=== PATIENT | female | born 1940 | race Caucasian/White ===

== ENCOUNTER 2018-07-04 21:10 | Emergency (ER) | payer OTHER ==
[2018-07-04] MEDS ORDERED: LIDOCAINE 1% MPF 5 ML VIAL ONE (21:42)
[2018-07-04] MEDS ORDERED: LIDOCAINE 1% W/EPI 1:100,000 MDV 50 ML VIAL ONE (21:55)
--- NOTE | 2018-07-04 22:59 | ER ---
Nurse's Notes [facility] Name: Bonnie Bhatia Age: 78 yrs Sex: Female : 1940 Arrival Date: 07/04/2018 Time: 21:11 Bed 6 Private MD: Diagnosis: Laceration without foreign body of foot-Right Presentation: 07/04 21:10 Presenting complaint: Patient states: that she was moving a pot of childers and tripped fc over a metal piece, cutting top of right foot. States that it was squirting blood everywhere. Transition of care: patient was not received from another setting of care. Onset of symptoms was July 04, 2018 at 21:00. Risk Assessment: Do you want to hurt yourself or someone else? Patient reports no desire to harm self or others. Initial Sepsis Screen: Does the patient meet any 2 criteria? HR > 90 bpm. Yes Does the patient have a suspected source of infection? No. Patient's initial sepsis screen is negative. Care prior to arrival: Bleeding of injury controlled. 21:10 Method Of Arrival: Wheelchair fc 21:10 Acuity: ALESSANDRO 4 fc Historical: - Allergies: 21:28 No Known Allergies; fc - Home Meds: 21:28 Coreg 6.25 mg Oral tab 1 tab 2 times per day [Active]; gabapentin 600 mg oral tab 1 tab fc nightly [Active]; zonisamide 100 mg oral cap 1 cap once daily [Active]; primidone 50 mg Oral tab 1 tabs daily [Active]; simvastatin 20 mg Oral tab 1 tab once daily [Active]; - PMHx: 21:28 DVT; ESSENTIAL TREMORS; High Cholesterol; Hypertension; fc - PSHx: 21:28 Cholecystectomy; Hysterectomy; fc - Immunization history:: Last tetanus immunization: up to date. - Social history:: Smoking status: Patient/guardian denies using tobacco. - Ebola Screening: : Patient negative for fever greater than or equal to 101.5 degrees Fahrenheit, and additional compatible Ebola Virus Disease symptoms Patient denies exposure to infectious person Patient denies travel to an Ebola-affected area in the 21 days before illness onset. Screenin:51 Abuse screen: Denies threats or abuse. Denies injuries from another. Nutritional tl1 screening: No deficits noted. Tuberculosis screening: No symptoms or risk factors identified. Fall Risk None identified. Assessment: 22:49 General: Appears in no apparent distress. Behavior is calm, cooperative, appropriate tl1 for age. Pain: Complains of pain in dorsum of right foot. Neuro: Level of Consciousness is awake, alert, obeys commands, Oriented to person, place, time, situation. Cardiovascular: Denies chest pain. Respiratory: Airway is patent Trachea midline Respiratory effort is even, unlabored, Breath sounds are clear bilaterally. GI: Abdomen is non-distended. : No signs and/or symptoms were reported regarding the genitourinary system. EENT: No signs and/or symptoms were reported regarding the EENT system. Derm: Wound noted dorsum of right foot Wound is laceration. Injury Description: Laceration sustained to dorsum of right foot is clean, jagged, superficial, 0.5 to 2.5 cm long, was sustained 30-60 minutes ago. a small amount of bleeding noted at this time. 23:26 Reassessment: Patient and/or family updated on plan of care and expected duration. Pain tl1 level reassessed. Patient is alert, oriented x 3, equal unlabored respirations, skin warm/dry/pink. Patient denies pain at this time. Patient states feeling better. Patient states symptoms have improved. Vital Signs: 21:10 BP 119 / 79; Pulse 93; Resp 18; Temp 98.5(O); Pulse Ox 100% on R/A; Weight 78.93 kg fc (R); Height 5 ft. 8 in. (172.72 cm) (R); Pain 2/10; 22:53 BP 117 / 68; Pulse 64; Resp 17; Temp 98.6; Pulse Ox 100% ; Pain 0/10; tl1 21:10 Body Mass Index 26.46 (78.93 kg, 172.72 cm) ED Course: 21:10 Arm band placed on Patient placed in an exam room, on a stretcher. fc 21:10 Patient has correct armband on for positive identification. Bed in low position. Call tl1 light in reach. Side rails up X 1. 21:11 Patient arrived in ED. al2 21:12 Rahul Velazquez PA is PHCP. cp 21:12 Garland Santillan MD is Attending Physician. cp 21:25 Triage completed. fc 21:39 Lasagna, Abbi, RN is Primary Nurse. tl1 21:55 X-ray completed. Portable x-ray completed in exam room. Patient tolerated procedure ls3 well. 21:57 XRAY Foot RIGHT 3 View In Process Unspecified. EDMS 22:51 Assist provider with laceration repair on right foot that was 2.5 cm. or less using tl1 sutures. Set up tray. Performed by Rahul Velazquez PA Dressed with Neosporin, Patient tolerated well. Patient did not have IV access during this emergency room visit. 23:27 Dressings: 4X4s. tl1 Administered Medications: 22:30 Drug: Lidocaine-Epinephrine -1%: (1:100,000) 5 ml {Note: Administered by Rahul Velazquez to tl1 right foot prior to sutures.} Volume: 20 ml; Route: Infiltration; Site: wound; 23:26 Follow up: Response: No adverse reaction; Marked relief of symptoms; Pain is decreased tl1 Outcome: 22:58 Discharge ordered by MD. ashly 23:27 Discharged to home via wheelchair. tl1 23:27 Condition: good 23:27 Discharge instructions given to patient, family, Instructed on discharge instructions, follow up and referral plans. medication usage, Demonstrated understanding of instructions, follow-up care, wound care. 23:28 Patient left the ED. tl1 Signatures: Dispatcher [employer] EDMS Linda Pires RN RN Abbi Arellano RN RN tl1 Rahul Velazquez PA PA cp Love, Hussain Oliver ls3
--- NOTE | 2018-07-04 22:59 | EDPHYS ---
Physician Documentation [facility] Name: Bonnie Bhatia Age: 78 yrs Sex: Female : 1940 Arrival Date: 07/04/2018 Time: 21:11 Bed 6 Private MD: ED Physician Garland Santillan HPI: 07/04 21:35 This 78 yrs old Female presents to ER via Wheelchair with complaints of cp laceration to foot. 21:35 The patient has a laceration occurred at home, outdoors. cp 21:35 The laceration(s) is(are) located on the dorsum of right foot. Onset: The cp symptoms/episode began/occurred just prior to arrival. Historical: - Allergies: 21:28 No Known Allergies; fc - Home Meds: 21:28 Coreg 6.25 mg Oral tab 1 tab 2 times per day [Active]; gabapentin 600 mg oral tab 1 tab fc nightly [Active]; zonisamide 100 mg oral cap 1 cap once daily [Active]; primidone 50 mg Oral tab 1 tabs daily [Active]; simvastatin 20 mg Oral tab 1 tab once daily [Active]; - PMHx: 21:28 DVT; ESSENTIAL TREMORS; High Cholesterol; Hypertension; fc - PSHx: 21:28 Cholecystectomy; Hysterectomy; fc - Immunization history:: Last tetanus immunization: up to date. - Social history:: Smoking status: Patient/guardian denies using tobacco. - Ebola Screening: : Patient negative for fever greater than or equal to 101.5 degrees Fahrenheit, and additional compatible Ebola Virus Disease symptoms Patient denies exposure to infectious person Patient denies travel to an Ebola-affected area in the 21 days before illness onset. ROS: 21:40 Constitutional: Negative for body aches, chills, fever, poor PO intake. cp 21:40 Eyes: Negative for injury, pain, redness, and discharge. cp 21:40 Cardiovascular: Negative for chest pain. 21:40 Abdomen/GI: Negative for abdominal pain, nausea, vomiting, and diarrhea. 21:40 Skin: Positive for laceration(s), of the dorsum of right foot. 21:40 All other systems are negative. Exam: 21:45 Constitutional: The patient appears in no acute distress, alert, awake, non-toxic, well cp developed, well nourished. 21:45 Head/Face: Normocephalic, atraumatic. cp 21:45 Eyes: Periorbital structures: appear normal, Conjunctiva: normal, no exudate, no injection, Lids and lashes: appear normal, bilaterally. 21:45 ENT: External ear(s): are unremarkable, Nose: is normal, Mouth: Lips: moist, Oral mucosa: moist, Posterior pharynx: Airway: no evidence of obstruction, patent. 21:45 Chest/axilla: Inspection: normal, Palpation: is normal, no crepitus, no tenderness. 21:45 Cardiovascular: Rate: normal, Rhythm: regular. 21:45 Respiratory: the patient does not display signs of respiratory distress, Respirations: normal. 21:45 Abdomen/GI: Inspection: abdomen appears normal, Palpation: abdomen is soft and non-tender, in all quadrants. 21:45 Skin: injury, laceration(s), the wound is approximately 2.5 cm(s), of the dorsum of right foot, that can be described as clean, no foreign body, irregular, with mild bleeding. Vital Signs: 21:10 BP 119 / 79; Pulse 93; Resp 18; Temp 98.5(O); Pulse Ox 100% on R/A; Weight 78.93 kg fc (R); Height 5 ft. 8 in. (172.72 cm) (R); Pain 2/10; 22:53 BP 117 / 68; Pulse 64; Resp 17; Temp 98.6; Pulse Ox 100% ; Pain 0/10; tl1 21:10 Body Mass Index 26.46 (78.93 kg, 172.72 cm) Laceration: 22:56 Wound Repair of 2.5cm ( 1.0in ) subcutaneous laceration to dorsum of right foot. cp Irregularly shaped.. Distal neuro/vascular/tendon intact. Anesthesia: Wound infiltrated with 5 mls of 1% lidocaine w/ Epi. Wound prep: Moderate cleansing by nurse, Wound irrigation by nurse. Skin closed with 5 4-0 Prolene using interrupted sutures and sterile technique. Dressed with Bacitracin, 4x4's. Patient tolerated well. MDM: 21:12 Patient medically screened. cp 21:30 Differential diagnosis: superficial laceration, tendon injury, vascular injury. cp 22:57 Data reviewed: vital signs, nurses notes, radiologic studies, plain films. Test cp interpretation: by ED physician or midlevel provider: plain radiologic studies. 22:57 Counseling: I had a detailed discussion with the patient and/or guardian regarding: the cp historical points, exam findings, and any diagnostic results supporting the discharge/admit diagnosis, radiology results, to return to the emergency department if symptoms worsen or persist or if there are any questions or concerns that arise at home. 22:57 Response to treatment: the patient's symptoms have markedly improved after treatment, cp and as a result, I will discharge patient. 07/04 21:27 Order name: XRAY Foot RIGHT 3 View cp 07/04 21:27 Order name: Wound Care: please clean and irrigate wound; Complete Time: 22:01 cp 07/04 20: Order name: Dressing - Wound; Complete Time: 22:49 cp 07/04 Order name: Gloves, Sterile; Complete Time: 22:01 cp 07/04 20: Order name: Setup Suture Tray; Complete Time: 22:00 cp Administered Medications: 22:30 Drug: Lidocaine-Epinephrine -1%: (1:100,000) 5 ml {Note: Administered by Rahul Velazquez to tl1 right foot prior to sutures.} Volume: 20 ml; Route: Infiltration; Site: wound; 23:26 Follow up: Response: No adverse reaction; Marked relief of symptoms; Pain is decreased tl1 Disposition: 07/04/18 22:58 Discharged to Home. Impression: Laceration without foreign body of foot - Right. - Condition is Stable. - Discharge Instructions: Laceration Care, Adult. - Medication Reconciliation Form, Thank You Letter, Antibiotic Education, Prescription Opioid Use form. - Follow up: Private Physician; When: 10 - 14 days; Reason: Staple/Suture removal. - Problem is new. - Symptoms have improved. Signatures: Dispatcher [employer] EDMS Linda Pires RN RN Abbi Arellano RN RN tl1 Rahul Velazquez PA PA cp Corrections: (The following items were deleted from the chart) 23:28 22:58 07/04/2018 22:58 Discharged to Home. Impression: Laceration without foreign body tl1 of foot - Right. Condition is Stable. Forms are Medication Reconciliation Form, Thank You Letter, Antibiotic Education, Prescription Opioid Use. Follow up: Private Physician; When: 10 - 14 days; Reason: Staple/Suture removal. Problem is new. Symptoms have improved. cp
[2018-07-04 23:58] VITALS: O2SAT 100
[2018-07-04 23:59] VITALS: BP 117/68; TEMP 98.6
--- NOTE | 2018-07-05 07:52 | RAD REPORT ---
EXAM DESCRIPTION: RAD - Foot Right 3 View - 07/04/2018 9:57 pm CLINICAL HISTORY: Right foot pain status post injury FINDINGS: No fracture or dislocation is seen Large calcaneal spurs without significant change from 2012
== END 2018-07-04 23:28 | disposition home or self-care (01) ==
LOC: ER 21:10
PROC: 0JQQ0ZZ Repair Right Foot Subcutaneous Tissue and Fascia, Open Approach (ICD-10-PCS; principal; 2018-07-04)
DX: S91.311A Laceration without foreign body, right foot, initial encounter (principal); W45.8XXA Other foreign body or object entering through skin, initial encounter
CPT/HCPCS: 99283

== ENCOUNTER 2018-11-20 07:21 | Observation (INO) | payer OTHER ==
--- NOTE | 2018-11-16 15:03 | RAD REPORT ---
EXAM DESCRIPTION: Noemi Jewell And Esthela (2 Views)11/16/2018 2:49 pm CLINICAL HISTORY: Hypertension/preop for hernia surgery COMPARISON: 2009 FINDINGS: The lungs appear clear of acute infiltrate. The heart is normal size Scoliosis involves the thoracolumbar spine IMPRESSION: No acute abnormalities displayed
[2018-11-16 15:16] LABS: Absolute Monocytes 0.5 K/uL (0.1-1.3); Basophils % 0.4 % (0-1.3); Eosinophils % 2.1 % (0-4.4); Hematocrit 45.5 % (36.0-45.0); Lymphocytes % 30.2 % (15.3-44.8); MPV 9.4 fL (7.6-11.3); RBC Red Blood Cell Count 4.97 M/uL (3.86-4.86)
[2018-11-16 15:25] LABS: Potassium 3.7 mmol/L (3.5-5.1)
--- NOTE | 2018-11-17 07:18 | EKG ---
Test Date: 2018-11-16 Test Time: 14:57:26 Aeronautical Inspector: ROB MEASUREMENT RESULTS: Intervals: Rate: 80 OH: 182 QRSD: 116 QT: 386 QTc: 445 [place]: P: 73 OH: 182 QRS: -23 T: 76 INTERPRETIVE STATEMENTS: Normal sinus rhythm Possible Left atrial enlargement Septal infarct, age undetermined Abnormal ECG Compared to ECG 03/03/2017 12:58:38 Sinus bradycardia no longer present Left-axis deviation no longer present Myocardial infarct finding still present Electronically Signed On 11-17-18 07:15:52 CDT by Anibal Garcia
[~2018-11-20 07:21] MED LIST: CEFAZOLIN/SWI 1gm 1 GM/10 ML SYR ONE; Ringers Lactate 1,000 ML IV ONE
[2018-11-20] MEDS ORDERED: Ringers Lactate 1,000 ML IV ONE ×2 (07:56→09:56)
[2018-11-20] MEDS ORDERED: PROPOFOL 200 MG/20 ML VIAL IV ONE (08:08)
[2018-11-20] MEDS ORDERED: GLYCOPYRROLATE 0.2 MG/ML SYR ONE ×2 (08:09→09:08)
[2018-11-20] MEDS ORDERED: LIDOCAINE 2% MPF 5 ML VIAL ONE (08:10)
[2018-11-20] MEDS ORDERED: FENTANYL CITR 250 MCG/5 ML ONE (08:10)
[2018-11-20] MEDS ORDERED: ROCURONIUM 50 MG/5 ML VIAL IV ONE (08:11)
[2018-11-20] MEDS ORDERED: NEOSTIGMINE 1 MG/ML -10 ML VIAL ONE ×2 (08:11→09:04)
[2018-11-20] MEDS ORDERED: ONDANSETRON 4 MG/2 ML VIAL ONE (08:11)
[2018-11-20] MEDS ORDERED: CEFAZOLIN/SWI 1gm 1 GM/10 ML SYR ONE (08:48)
[2018-11-20] MEDS ORDERED: EPHEDRINE SULF 50 MG/ML VIAL ONE (09:04)
[2018-11-20] MEDS: MEPERIDINE HCL 25 MG/0.5 ML ONE ×4 (11:03→11:28)
[2018-11-20] MEDS ORDERED: ONDANSETRON 4 MG/2 ML VIAL IV PRN (11:07)
--- NOTE | 2018-11-20 11:23 | P.BOP ---
Preoperative diagnosis: incisional incarcerated ventral hernia Postoperative diagnosis: same plus extensive intrabdominal adhesions Primary procedure: 1. Open repair of large incisional incarcerated ventral hernia with mesh Secondary procedure: laparoscopic assisted. Other procedure(s): 2. Laparoscopic extensive lysis of adhesions Estimated blood loss: <10cc Specimen: hernia sac Findings: see dictation Anesthesia: General Complications: None Implants: ventralight mesh with EPS Transferred to: Recovery Room Condition: Good
[2018-11-20] MEDS: HYDROMORPHONE HCL 1 MG/ML INJ ONE ×4 (11:51→12:44)
[2018-11-20] MEDS: NA CHLORIDE 0.9% 1,000 ML IV SCH ×3 (12:00→21:12)
[2018-11-20] MEDS ORDERED: CEFOXITIN 1 GM in NA CHLORIDE 0.9% 100 ML IVPB SCH (12:00)
[2018-11-20] MEDS: CEFOXITIN/SWI 1gm 1 GM/10 ML SYR IV SCH ×2 (12:57→20:09)
[2018-11-20] MEDS ORDERED: MIDAZOLAM HCL 2 MG/2 ML INJ ONE (13:08)
[2018-11-20 13:57] VITALS: BMI 25.5
[2018-11-20] MEDS: MORPHINE 2 MG/ML SYR IV PRN ×2 (14:30→23:53)
[2018-11-20] MEDS: HYDROCODONE/APAP 5/325 MG TAB PO PRN (21:12)
[2018-11-20 22:17] VITALS: O2SAT 97
[2018-11-21] MEDS: CEFOXITIN/SWI 1gm 1 GM/10 ML SYR IV SCH ×3 (00:30→11:46)
--- NOTE | 2018-11-21 01:32 | OP ---
Date of Procedure: 11/20/2018 Surgeon: Loyd Riggs MD Preoperative Diagnosis: Tender incarcerated incisional ventral hernia. Postoperative Diagnosis: Tender incarcerated incisional ventral hernia, extensive intraabdominal adh esions. Procedures: 1.Open repair of large incisional incarcerated ventral hernia with mesh, laparoscopic assist. 2.Laparoscopic extensive lysis of adhesions. Anesthesia: General plus local. Implants: A Ventralight mesh with Echo Positioning System. Fixation device is Capture. Indications: This is the case of a 78-year-old patient, comes to us with an incisional ventral herni a in upper ventral region. The patient had extensive surgery before with midline incisions. The her augustina is in part of her abdomen, so she was offered a repair of an incarcerated incisional ventral nishi ia with mesh. Depends on the size, she preferred the entire incision not to be opened, so we may ope n some of that to reduce some incarcerated bowel if it is possible and if it is viable. Then, after that, we are going to take that advantage to permanently secure the stitches in that area and then fi sue the procedure by doing any intraperitoneal placement of a Ventralight mesh. She understood the benefits, alternatives, and risks of the surgery which include but not limited to infection, bleeding , damage to adjacent structures, anesthesia complication, recurrence, chronic pain, chronic numbness, HI, even . She also understands this might not relieve any symptoms and she might need more th an one surgical intervention. She understands that we are going to be most likely using mesh in that region. Pros and cons of mesh were discussed with the patient at length. We even brought the famil y members at bedside in my office to discuss with them also plan just mentioned above. The had all t he questions and all were answered to their satisfaction. She understands the importance of not gain ing weight, the importance of no heavy lifting and avoiding constipation. She signed a consent. Description Of Procedure: The patient was brought to the operating room, placed in supine position. Anesthesia was given without complication. Abdominal area was prepped and draped in a sterile fashi on. Local anesthetic was applied followed by a midline incision in part of the incision. The patien t had a previous surgery in that region, so as expected we have a lot of scar tissue present. Outsid e hernia sac was found open bowel and omentum present in that area. After releasing some adhesions, we were able to reduce back in the abdominal cavity. The patient had a lot of adhesions incised, so in order for us to continue this we are going to go into laparoscopic mode to be able to remove all t hose adhesions to allow proper closure of that area. So, the fascia edges were cleaned and we put ou t prolene #2 in a [id number] fashion multiple times. Enough for us to allow to put a Nellie tro car to that area after holding the stitches without being tied yet. We obtained enough pneumoperiton eum to place three 5 mm trocars on the sides of the abdomen. This allowed me to use a LigaSure devic e and proceed to do lysis of adhesions. Obviously, because the patient had multiple surgeries, it is extensive. We were able to bring the intestines down without enterotomies. Even the stomach was at tached to the anterior abdominal wall. The area of the stomach was left intact in the upper abdomen since this is not in our area of surgery. Parts of her ligaments also had to be partially removed to allow the mesh to be nice and flat. We selected a mesh that overlapped the area about 3-5 cm. At t hat moment, I proceeded then to check for hemostasis, intact with no enterotomies. So, I deflated th e pneumoperitoneum. We were able to then put the mesh through the incision in the upper abdomen. Th is mesh has an Echo Positioning System. So, the catheter was placed through the incision to allow th e insufflation. We tied all the stitches except one. That one is going to be removed at the end onc e the catheter is full. At that moment, we obtained pneumoperitoneum once again, inflated the balloo n in Echo Positioning System, leaving the mesh against the abdominal wall nice and flat. We took adv antage of that and put the capture in those areas to all the edges of that mesh to avoid any intestin es to herniate to that area. Balloon was deflated and removed through one of the trocar sites intact . We placed that further fixation of the mesh and to make sure it was nice and flat. At that moment , we checked for the previous lysis of adhesions; looked intact, with no bleeding. The mesh looks in tact, not even the midline now is leaking. So, we proceeded to open the trocars, deflated the pneumo peritoneum, and then closed our last stitch and tied it. Local anesthetic was applied over the area. Obviously, the patient has a subcutaneous space that the hernia used to be on. We tried to obliter ate that the best we can. There is some mass removed from that area. So, we are having a space that most likely will form a seroma. After that, we closed the skin with 4-0 PDS. Steri-Strips placed o chantell the area. The patient tolerated the procedure well. The patient was sent to Recovery in stable condition. This patient had extensive surgery, multiple adhesions, incisional hernias. We expect th is patient to develop ileus and require IV pain medication. She wants to stay; I agree with that. S urgery going to give her more observation for at least 24 hours on pain control. ANDREA Voice ID: [id number] Report ID: [id number]
[2018-11-21] MEDS: HYDROCODONE/APAP 5/325 MG TAB PO PRN ×2 (04:02→12:46)
[2018-11-21 04:56] LABS: Absolute Lymphocytes (CBC) 1.1 K/uL (0.7-4.9); Absolute Monocytes 0.7 K/uL (0.1-1.3); Absolute Neutrophil 7.8 K/uL (1.8-8.0); Basophils % 0.1 % (0-1.3); Hematocrit 40.5 % (36.0-45.0); Lymphocytes % 11.8 % (15.3-44.8); MPV 9.2 fL (7.6-11.3); Monocytes % 6.8 % (3.3-12.3); RBC Red Blood Cell Count 4.43 M/uL (3.86-4.86)
[2018-11-21 05:16] LABS: Potassium 4.2 mmol/L (3.5-5.1)
[2018-11-21] MEDS ORDERED: CEFOXITIN/SWI 1gm 1 GM/10 ML SYR ONE (05:30)
[2018-11-21] MEDS: MORPHINE 2 MG/ML SYR IV PRN (05:50)
[2018-11-21 12:51] VITALS: BP 140/67; TEMP 99.5
--- NOTE | 2018-11-21 16:55 | PN ---
Date of Progress Note: 11/21/2018 Diagnosis: Incarcerated incisional large ventral hernia repair with extensive lysis of adhesions. Disposition: Home Activity: As tolerated. No heavy lifting. Followup: Follow up in my office in 1 week. Call for appointment [phone]. Keep area dry for 24 hours then may remove outer dressings and shower. The patient is awake and alert. No distress. Tolerating diet. No shortness of breath. No chest pa in. No fever. Physical Examination: Chest: Clear. Abdomen: Soft and depressible. Intact surgical site. Extremities: Good capillary refill. Plan: The patient will be discharged home with Tylenol No.3 q.4 hours p.r.n. pain Bactrim DS p.o. b. i.d. YOSELYN/SULLY Voice ID: [id number] Report ID: [id number]
[2018-11-21] MEDS ORDERED: GABAPENTIN 300 MG CAP PO SCH (21:00)
== END 2018-11-21 13:30 | disposition home or self-care (01) ==
LOC: OR 07:21 → 4TH 11:10
PROVIDERS: ADMIT Surgery; ATTEND Surgery
PROC: 0WUF0JZ Supplement Abdominal Wall with Synthetic Substitute, Open Approach (ICD-10-PCS; principal; 2018-11-20 08:30)
PROC: 0DNU4ZZ Release Omentum, Percutaneous Endoscopic Approach (ICD-10-PCS; 2018-11-20 08:30)
DX: K43.0 Incisional hernia with obstruction, without gangrene (principal); K66.0 Peritoneal adhesions (postprocedural) (postinfection); E78.00 Pure hypercholesterolemia, unspecified; I10 Essential (primary) hypertension; G40.909 Epilepsy, unspecified, not intractable, without status epilepticus; Z79.899 Other long term (current) drug therapy
CPT/HCPCS: 49561; 49568; 49329; 93005; 85025 ×2; 80048 ×2; 36415 ×2; 88304; 71046; 97162; G0379; J2704; J2710 ×2; J2250; J3010; J2270 ×4; J2175 ×2; J1170 ×2; J0690 ×2; J7030 ×3; J2405; G0378; 88302

== ENCOUNTER 2020-11-03 13:43 | Inpatient (IN) | payer OTHER ==
[2020-11-03 14:48] LABS: Absolute Lymphocytes (CBC) 1.3 K/uL (0.7-4.9); Basophils % 0.5 % (0-1.3); Hematocrit 43.6 % (36.0-45.0); Lymphocytes % 16.7 % (15.3-44.8); MPV 9.7 fL (7.6-11.3); RBC Red Blood Cell Count 4.67 M/uL (3.86-4.86)
[2020-11-03] MEDS ORDERED: ONDANSETRON 4 MG/2 ML VIAL ONE (15:01)
[2020-11-03] MEDS ORDERED: MORPHINE 2 MG/ML SYR ONE ×2 (15:01→16:19)
[2020-11-03 15:05] LABS: Protime INR 1.3
--- NOTE | 2020-11-03 15:05 | RAD REPORT ---
EXAM DESCRIPTION: RAD - Chest Single View - 11/03/2020 2:53 pm CLINICAL HISTORY: CHEST PAIN Chest pain. COMPARISON: Chest Pa And Lat (2 Views) dated 11/16/2018; CHEST PA AND LAT 2 VIEW dated 03/26/2010; OPAL ST SINGLE VIEW dated 11/01/2007; CHEST SINGLE VIEW dated 10/31/2007 FINDINGS: Portable technique limits examination quality. The lungs are grossly clear. The heart is normal in size. No displaced fractures.Mild to moderate tho racic dextroscoliosis. IMPRESSION: No acute intrathoracic process suspected.
[2020-11-03 15:20] LABS: Albumin 3.9 g/dL (3.4-5.0); Bilirubin Direct 0.1 mg/dL (0-0.2); Bilirubin Total 0.3 mg/dL (0.2-1.0); Magnesium 2.2 mg/dL (1.8-2.4); Protein, Total 7.5 g/dL (6.4-8.2)
[2020-11-03 15:23] LABS: Troponin (Emerg Dept Use Only) 3.46 ng/mL (0.0-0.045)
--- NOTE | 2020-11-03 16:09 | RAD REPORT ---
EXAM DESCRIPTION: CT - Angio Aorta For Dissection - 11/03/2020 3:58 pm CLINICAL HISTORY: Chest pain radiating to the back. CHEST PAIN COMPARISON: No comparisons TECHNIQUE: CT angiography of the aorta was performed with MIPs. All CT scans are performed using dose optimization technique as appropriate and may include automated exposure control or mA/KV adjustment according to patient size. FINDINGS: A left aortic arch is present with normal branching pattern of the great vessels.No acute aortic finding is seen such as aneurysm, penetrating ulcer or dissection. The celiac axis, SMA, BLAYNE and renal arteries are patent. IVC filter is noted. No evidence of pulmonary embolism. The lungs are clear. Small hiatal hernia is seen with postsurgical changes at the gastroesophageal ju nction. The liver demonstrates no focal mass or biliary dilatation.The spleen, pancreas, adrenal glands and k idneys are within normal limits for arterial phase imaging.Benign left renal cyst. Cholecystectomy cl ips. No bowel obstruction, free fluid or abscess.Normal appendix.No pathologic enlarged lymphadenopathy id entified. Moderate lumbosacral degenerative changes. IMPRESSION: No acute aortic finding is demonstrated. Small hiatal hernia.
[2020-11-03] MEDS ORDERED: NA CHLORIDE 0.9% 250 ML ONE (16:19)
--- NOTE | 2020-11-03 16:22 | EDPHYS ---
Physician Documentation [facility] Name: Bonnie Bhatia Age: 80 yrs Sex: Female : 1940 Arrival Date: 11/03/2020 Time: 13:45 Bed 23 Private MD: VIDAL Physician Rahul Viveros HPI: 11/03 14:25 This 80 yrs old Female presents to ER via Ambulatory with complaints of Arm cp Pain, Neck Pain, <24hrs Old, Chest Pain. 14:25 The patient or guardian reports chest pain that is located primarily in the substernal cp area. 14:25 Onset: 30 minute(s) ago. The pain radiates to both shoulders, neck. Associated signs cp and symptoms: Pertinent negatives: abdominal pain, diaphoresis, lower extremity pain, lower extremity swelling, shortness of breath, syncope. The chest pain is described as constant. Duration: The patient or guardian reports a single episode, that is still ongoing, and unchanged. Historical: - Allergies: 14:06 No Known Allergies; ca1 - Home Meds: 14:06 simvastatin 20 mg Oral tab 1 tab once daily [Active]; primidone 250 mg oral tab 1 tab ca1 twice a day [Active]; duloxetine 30 mg oral cpDR 1 cap once daily [Active]; clonidine HCl 0.1 mg Oral tab 1 tab once daily [Active]; aspirin 81 mg Oral TbEC 1 tab once daily [Active]; topiramate 100 mg oral CSpX 1 cap once daily [Active]; gabapentin 600 mg Oral tab 1 tab nightly [Active]; - PMHx: 14:06 DVT; ESSENTIAL TREMORS; High Cholesterol; Hypertension; ca1 - PSHx: 14:06 Cholecystectomy; Hysterectomy; ca1 - Immunization history:: Adult Immunizations up to date, Client reports receiving the 2nd dose of the Covid vaccine, Client reports receiving the 1st dose of the Covid vaccine, Pneumococcal vaccine is up to date, Flu vaccine is up to date. - Social history:: Smoking status: Patient denies any tobacco usage or history of. ROS: 14:30 Eyes: Negative for injury, pain, redness, and discharge. cp 14:30 Constitutional: Negative for body aches, chills, fever, poor PO intake. 14:30 ENT: Negative for ear pain, sore throat, difficulty swallowing, difficulty handling secretions. 14:30 Cardiovascular: Positive for chest pain, Negative for edema, palpitations. 14:30 Respiratory: Negative for cough, shortness of breath, wheezing. 14:30 Abdomen/GI: Negative for abdominal pain, vomiting, diarrhea, constipation. 14:30 Back: Negative for pain at rest, pain with movement. 14:30 Neuro: Negative for altered mental status, dizziness, headache, syncope, weakness. 14:30 All other systems are negative. Exam: 14:28 ECG was reviewed by the Attending Physician. cp 14:33 Constitutional: The patient appears in no acute distress, alert, awake, cp non-diaphoretic, non-toxic, well developed, well nourished. 14:33 Head/Face: Normocephalic, atraumatic. cp 14:33 Eyes: Periorbital structures: appear normal, Conjunctiva: normal, no exudate, no injection, Sclera: no appreciated abnormality, Lids and lashes: appear normal, bilaterally. 14:33 ENT: External ear(s): are unremarkable, Nose: is normal, Mouth: Lips: moist, Oral mucosa: moist, Posterior pharynx: Airway: no evidence of obstruction, patent. 14:33 Neck: ROM/movement: is normal, is supple, no meningismus, no nuchal rigidity. 14:33 Chest/axilla: Inspection: normal, Palpation: is normal, no crepitus, no tenderness. cp 14:33 Cardiovascular: Rate: normal, Rhythm: regular, Edema: is not appreciated, JVD: is not cp appreciated. 14:33 Respiratory: the patient does not display signs of respiratory distress, Respirations: normal, no use of accessory muscles, no retractions, labored breathing, is not present, Breath sounds: are clear throughout, no decreased breath sounds, no stridor, no wheezing. 14:33 Abdomen/GI: Inspection: abdomen appears normal, Palpation: abdomen is soft and non-tender, in all quadrants. 14:33 Neuro: Orientation: to person, place \\T\\ time. Mentation: is normal, Cerebellar function: is grossly normal, Motor: moves all fours, strength is normal, Sensation: is normal. Vital Signs: 14:00 BP 154 / 95; Pulse 92; Resp 15 S; Pulse Ox 99% on R/A; Weight 74.84 kg (R); Height 5 ca1 ft. 8 in. (172.72 cm) (R); Pain 8/10; 14:16 BP 137 / 81; Pulse 84; Resp 18; Pulse Ox 98% on R/A; zb 15:30 BP 134 / 87; Pulse 70; Resp 16; Pulse Ox 99% on R/A; zb 16:37 Weight 75.7 kg; zb 17:04 BP 157 / 88; Pulse 76; Resp 18; Pulse Ox 100% on R/A; zb 18:15 BP 129 / 78; Pulse 69; Resp 16; Pulse Ox 100% on R/A; zb 19:15 BP 117 / 98; Pulse 66; Resp 16; Temp 97.9; Pulse Ox 99% on R/A; zb 16:37 Body Mass Index 25.38 (75.70 kg, 172.72 cm) zb MDM: 14:26 Patient medically screened. cp 14:30 Differential diagnosis: abnormal EKG, acute myocardial infarction, esophagitis, cp gastroesophageal reflux disease (GERD), peptic ulcer disease, pulmonary embolus, stable angina, thoracic aortic disection, unstable angina. 16:25 Data reviewed: vital signs, nurses notes, lab test result(s), EKG, radiologic studies, cp CT scan, plain films, I have discussed the patient's presentation/case with the attending Emergency Department Physician;. 16:25 Physician consultation: Migule Gaspar MD was contacted at 16:15, regarding consult, cp patient's condition, would like admission per Dr. Wero Su. 11/03 14:19 Order name: Basic Metabolic Panel; Complete Time: 15:25 cp 11/03 15:26 Interpretation: Normal except: CL 108; GLUC 116; GFR 66. cp 11/03 14:19 Order name: CBC with Diff; Complete Time: 15:25 cp 11/03 15:26 Interpretation: Normal except: KEVIN% 75.3. cp 11/03 14:19 Order name: LFT's; Complete Time: 15:25 cp 11/03 14:19 Order name: Magnesium; Complete Time: 15:25 cp 11/03 14:19 Order name: NT PRO-BNP; Complete Time: 15:25 cp 11/03 14:19 Order name: PT-INR; Complete Time: 15:25 cp 11/03 14:19 Order name: Troponin (emerg Dept Use Only); Complete Time: 15:25 cp 11/03 15:26 Interpretation: Abnormal: TROPED 3.46. cp 11/03 14:19 Order name: XRAY Chest (1 view); Complete Time: 15:25 cp 11/03 14:27 Order name: Lipase; Complete Time: 15:25 cp 11/03 16:29 Order name: COVID-19 : Document "Date of Symptom Onset" if Symptomatic. cp 11/03 19:25 Order name: SARS-COV-2 RT PCR EDMS 11/03 19:38 Order name: Urine Dipstick-Ancillary EDMS 11/03 20:58 Order name: Ptt, Activated zb 11/03 20:58 Order name: Troponin I zb 11/03 14:19 Order name: EKG; Complete Time: 14:20 cp 11/03 14:19 Order name: Cardiac monitoring; Complete Time: 14:40 cp 11/03 14:19 Order name: EKG - Nurse/Tech; Complete Time: 14:30 cp 11/03 14:19 Order name: IV Saline Lock; Complete Time: 14:40 cp 11/03 14:19 Order name: Labs collected and sent; Complete Time: 14:40 cp 11/03 14:19 Order name: O2 Per Protocol; Complete Time: 14:40 cp 11/03 14:19 Order name: O2 Sat Monitoring; Complete Time: 14:40 cp 11/03 14:27 Order name: CT Aorta for Dissection; Complete Time: 16:18 cp 11/03 17:19 Order name: CL LEFT HEART WITHOUT LV EDMS EC:28 Rate is 87 beats/min. Rhythm is regular. UT interval is prolonged at 228 msec. QT cp interval is prolonged at 104 msec. T waves are Inverted in lead aVL. Interpreted by me. Reviewed by me. Administered Medications: 14:45 Drug: morphine 2 mg {Note: RASS 0.} Route: IVP; Site: right antecubital; zb 14:45 Drug: Zofran (Ondansetron) 4 mg Route: IVP; Site: right antecubital; zb 17:03 Follow up: Response: No adverse reaction; Nausea is decreased zb 16:07 Drug: morphine 2 mg {Note: RASS 0.} Route: IVP; Site: right antecubital; zb 17:02 Follow up: Response: No adverse reaction; Pain is decreased; RASS: Alert and Calm (0) zb 16:07 Drug: NS 0.9% 250 ml Route: IV; Rate: bolus; Site: right antecubital; zb 17:02 Follow up: Response: No adverse reaction; IV Status: Completed infusion; IV Intake: zb 250ml 17:20 Follow up: Response: No adverse reaction; IV Status: Completed infusion; IV Intake: zb 250ml 16:47 Drug: Aspirin Chewable Tablet 324 mg Route: PO; zb 17:30 Follow up: Response: No adverse reaction zb 16:47 Drug: PlaVIX (clopidogrel) 300 mg Route: PO; zb 17:00 Follow up: Response: No adverse reaction zb 17:00 Drug: Heparin ([place]-Bolus No thrombolytic) - HEParin 60 units/kg {Co-Signature: ll1 crow (Maribel Peralta RN).} Route: IVP; Site: right antecubital; 18:00 Follow up: Response: No adverse reaction zb 17:01 Drug: Heparin ([place] Drip) 12 units/kg/hr - (HEParin 35950 units, D5W 500 ml) zb {Co-Signature: ll1 (Maribel Peralta RN).} Route: IV; Rate: calculated rate; Site: right antecubital; 21:00 Follow up: Response: No adverse reaction; IV Status: Infusion continued upon admission zb Disposition: 11/04 09:50 Co-signature as Attending Physician, Rahul Viveros MD I agree with the assessment and malachi plan of care. Disposition: 11/03/20 16:21 Hospitalization ordered by Wero Su for Inpatient Admission. Preliminary diagnosis is Non-ST elevation (NSTEMI) myocardial infarction. - Bed requested for Telemetry/MedSurg (Inpatient). - Status is Inpatient Admission. zb - Condition is Stable. - Problem is new. - Symptoms have improved. Signatures: Dispatcher [employer] Ciara Zuniga RN RN dw Anderson, Corey, MD MD cha Page, Corey, PA PA cp Acob, Cheryl, RN RN ca1 Brown, Zipporah, RN RN zcarlos Peralta RN ll1 Corrections: (The following items were deleted from the chart) 11/03 19:42 16:21 Hospitalization Ordered by Wero Su for Inpatient Admission. Preliminary dw diagnosis is Non-ST elevation (NSTEMI) myocardial infarction. Bed requested for Intensive Care Unit. Status is Inpatient Admission. Condition is Stable. Problem is new. Symptoms have improved. cp 20:11/02 14:30 Constitutional: Negative for body aches, chills, fever, poor PO intake, cp cp 11/03 20:11/02 14:30 Eyes: Negative for injury, pain, redness, and discharge, cp cp 11/03 20:11/02 14:30 ENT: Negative for ear pain, sore throat, difficulty swallowing, difficulty cp handling secretions, cp 11/03 20:11/02 14:30 Cardiovascular: Positive for chest pain, Negative for edema, palpitations, cp cp 11/04 19:11/02 14:30 Respiratory: Negative for cough, shortness of breath, wheezing, cp cp 11/03 20:11/02 14:30 Abdomen/GI: Negative for abdominal pain, vomiting, diarrhea, constipation, cp cp 11/04 19:11/02 14:30 Back: Negative for pain at rest, pain with movement, cp cp 11/03 20:11/02 14:30 Neuro: Negative for altered mental status, dizziness, headache, syncope, cp weakness, cp 11/03 20:11/02 14:30 All other systems are negative, cp cp 11/03 21:44 19:42 11/03/2020 16:21 Hospitalization Ordered by Wero Su for Inpatient zb Admission. Preliminary diagnosis is Non-ST elevation (NSTEMI) myocardial infarction. Bed requested for Telemetry/MedSurg (Inpatient). Status is Inpatient Admission. Condition is Stable. Problem is new. Symptoms have improved. dw
--- NOTE | 2020-11-03 16:22 | ER ---
Nurse's Notes [facility] Name: Bonnie Bhatia Age: 80 yrs Sex: Female : 1940 Arrival Date: 11/03/2020 Time: 13:45 Bed 23 Private MD: Diagnosis: Non-ST elevation (NSTEMI) myocardial infarction Presentation: 11/03 14:00 Chief complaint: Patient states: chest pain started 30 minutes [employer]. CP radiating to the ca1 neck, shoulder blades. Denies Hx of heart attack. Coronavirus screen: Client denies travel out of the [place] in the last 14 days. At this time, the client does not indicate any symptoms associated with coronavirus-19. Ebola Screen: Patient negative for fever greater than or equal to 101.5 degrees Fahrenheit, and additional compatible Ebola Virus Disease symptoms Patient denies exposure to infectious person. Patient denies travel to an Ebola-affected area in the 21 days before illness onset. No symptoms or risks identified at this time. Initial Sepsis Screen: Does the patient meet any 2 criteria? No. Patient's initial sepsis screen is negative. Does the patient have a suspected source of infection? No. Patient's initial sepsis screen is negative. Risk Assessment: Do you want to hurt yourself or someone else? Patient reports no desire to harm self or others. Onset of symptoms was November 03, 2020. 14:00 Method Of Arrival: Ambulatory ca1 14:00 Acuity: ALESSANDRO 2 ca1 Historical: - Allergies: 14:06 No Known Allergies; ca1 - Home Meds: 14:06 simvastatin 20 mg Oral tab 1 tab once daily [Active]; primidone 250 mg oral tab 1 tab ca1 twice a day [Active]; duloxetine 30 mg oral cpDR 1 cap once daily [Active]; clonidine HCl 0.1 mg Oral tab 1 tab once daily [Active]; aspirin 81 mg Oral TbEC 1 tab once daily [Active]; topiramate 100 mg oral CSpX 1 cap once daily [Active]; gabapentin 600 mg Oral tab 1 tab nightly [Active]; - PMHx: 14:06 DVT; ESSENTIAL TREMORS; High Cholesterol; Hypertension; ca1 - PSHx: 14:06 Cholecystectomy; Hysterectomy; ca1 - Immunization history:: Adult Immunizations up to date, Client reports receiving the 2nd dose of the Covid vaccine, Client reports receiving the 1st dose of the Covid vaccine, Pneumococcal vaccine is up to date, Flu vaccine is up to date. - Social history:: Smoking status: Patient denies any tobacco usage or history of. Screenin:00 Abuse screen: Denies threats or abuse. Denies injuries from another. Nutritional zb screening: No deficits noted. Tuberculosis screening: No symptoms or risk factors identified. Fall Risk None identified. Assessment: 14:10 General: Appears uncomfortable, Behavior is anxious. Pain: Complains of pain in zb forehead, back of neck and chest Pain radiates to back Pain currently is 8 out of 10 on a pain scale. Quality of pain is described as aching, Pain began 1 hour ago. Is continuous, Alleviated by nothing. Noted to be grimacing, Also complains of shortness of breath. Neuro: Level of Consciousness is awake, alert, obeys commands, Oriented to person, place, time, Appropriate for age. Cardiovascular: Heart tones S1 S2 present Patient's skin is warm and dry. Rhythm is regular Chest pain is described as mild, quality is burning, is located in substernal area began 1 hour prior to arrival. Respiratory: Reports shortness of breath at rest pain with respiration Airway is patent Respiratory effort is even, unlabored, Respiratory pattern is regular, symmetrical, Breath sounds are clear bilaterally. the patient has mild shortness of breath. GI: No deficits noted. Derm: Skin is intact, Skin is dry, Skin is normal, Skin temperature is warm. Musculoskeletal: Circulation, motion, and sensation intact. Range of motion: intact in all extremities. 15:40 Reassessment: ECP at bedside. 16:17 Reassessment: Patient appears in no apparent distress at this time. Patient and/or zb family updated on plan of care and expected duration. Pain level reassessed. Patient is alert, oriented x 3, equal unlabored respirations, skin warm/dry/pink. family remains at bedside. pt states pain medication is working. IV fluid infusing. 17:04 Reassessment: Patient appears in no apparent distress at this time. Hospitalist at bedside. 18:00 Reassessment: Patient appears in no apparent distress at this time. Patient and/or zb family updated on plan of care and expected duration. Pain level reassessed. Patient is alert/active/playful, equal unlabored respirations, skin warm/dry/pink. patient ambulated to bedside commode. no issues. family remains at bedside. 19:00 Reassessment: Patient appears in no apparent distress at this time. Patient and/or zb family updated on plan of care and expected duration. Pain level reassessed. Patient is alert, oriented x 3, equal unlabored respirations, skin warm/dry/pink. family at bedside. pt denies pain at this time. 20:00 Reassessment: Patient appears in no apparent distress at this time. Patient and/or zb family updated on plan of care and expected duration. Pain level reassessed. Patient is alert, oriented x 3, equal unlabored respirations, skin warm/dry/pink. iv medication continues to infuse. family remains at bedside. 21:00 Reassessment: Patient appears in no apparent distress at this time. Patient and/or zb family updated on plan of care and expected duration. Pain level reassessed. Patient is alert, oriented x 3, equal unlabored respirations, skin warm/dry/pink. IV medication continues to infuse. family remains at bedside.. notified night nurse trop and PTT was sent. Vital Signs: 14:00 BP 154 / 95; Pulse 92; Resp 15 S; Pulse Ox 99% on R/A; Weight 74.84 kg (R); Height 5 ca1 ft. 8 in. (172.72 cm) (R); Pain 8/10; 14:16 BP 137 / 81; Pulse 84; Resp 18; Pulse Ox 98% on R/A; zb 15:30 BP 134 / 87; Pulse 70; Resp 16; Pulse Ox 99% on R/A; zb 16:37 Weight 75.7 kg; zb 17:04 BP 157 / 88; Pulse 76; Resp 18; Pulse Ox 100% on R/A; zb 18:15 BP 129 / 78; Pulse 69; Resp 16; Pulse Ox 100% on R/A; zb 19:15 BP 117 / 98; Pulse 66; Resp 16; Temp 97.9; Pulse Ox 99% on R/A; zb 16:37 Body Mass Index 25.38 (75.70 kg, 172.72 cm) ED Course: 13:45 Patient arrived in ED. as 14:00 Inserted saline lock: 20 gauge in right antecubital area, using aseptic technique. zb Blood collected. 14:00 EKG done, by ED staff, reviewed by Rahul CHILD. zb 14:04 Triage completed. ca1 14:06 Arm band placed on right wrist. ca1 14:16 Patient has correct armband on for positive identification. Bed in low position. Call zb light in reach. pvc monitor on. Pulse ox on. NIBP on. Door closed. Noise minimized. Warm blanket given. 14:18 Rahul Velazquez PA is PHCP. cp 14:18 Rahul Viveros MD is Attending Physician. cp 14:30 Vivien Cervantes RN is Primary Nurse. zb 14:53 XRAY Chest (1 view) In Process Unspecified. EDMS 15:58 CT Aorta for Dissection In Process Unspecified. EDMS 16:20 Wero Su is Hospitalizing Provider. cp 20:01 No provider procedures requiring assistance completed. Patient admitted, IV remains in zb place. 11/04 00:48 Troponin I Sent. zb 00:48 Ptt, Activated Sent. zb Administered Medications: 11/03 14:45 Drug: morphine 2 mg {Note: RASS 0.} Route: IVP; Site: right antecubital; zb 14:45 Drug: Zofran (Ondansetron) 4 mg Route: IVP; Site: right antecubital; zb 17:03 Follow up: Response: No adverse reaction; Nausea is decreased zb 16:07 Drug: morphine 2 mg {Note: RASS 0.} Route: IVP; Site: right antecubital; zb 17:02 Follow up: Response: No adverse reaction; Pain is decreased; RASS: Alert and Calm (0) zb 16:07 Drug: NS 0.9% 250 ml Route: IV; Rate: bolus; Site: right antecubital; zb 17:02 Follow up: Response: No adverse reaction; IV Status: Completed infusion; IV Intake: zb 250ml 17:20 Follow up: Response: No adverse reaction; IV Status: Completed infusion; IV Intake: zb 250ml 16:47 Drug: Aspirin Chewable Tablet 324 mg Route: PO; zb 17:30 Follow up: Response: No adverse reaction zb 16:47 Drug: PlaVIX (clopidogrel) 300 mg Route: PO; zb 17:00 Follow up: Response: No adverse reaction zb 17:00 Drug: Heparin ([place]-Bolus No thrombolytic) - HEParin 60 units/kg {Co-Signature: ll1 zcarlos (Maribel Peralta RN).} Route: IVP; Site: right antecubital; 18:00 Follow up: Response: No adverse reaction zb 17:01 Drug: Heparin ([place] Drip) 12 units/kg/hr - (HEParin 73413 units, D5W 500 ml) zb {Co-Signature: ll1 (Maribel Peralta RN).} Route: IV; Rate: calculated rate; Site: right antecubital; 21:00 Follow up: Response: No adverse reaction; IV Status: Infusion continued upon admission zb Intake: 17:02 IV: 250ml; Total: 250ml. zb 17:20 IV: 250ml; Total: 500ml. zb Outcome: 16:21 Decision to Hospitalize by Provider. cp 20:01 Admitted to Med/surg accompanied by nurse, family with patient, via stretcher, room zb 219, on monitor, Report called to Elaina. JONES 20:01 Condition: stable 20:01 Instructed on the need for admit. 21:44 Patient left the ED. zb Signatures: Dispatcher [employer] EDMS Marline Riggs Corey, PA PA cp Tika Ragsdale RN RN ca1 Brown, Zipporah, RN RN zb Maribel Peralta RN ll1 Corrections: (The following items were deleted from the chart) 17:04 14:10 Pain: Complains of pain in forehead, back of neck and chest Pain currently is 8 zb out of 10 on a pain scale. Quality of pain is described as aching, zb 20:04 19:15 BP 117 / 98; Pulse 66bpm; Resp 16bpm; Pulse Ox 99% RA; zb zb
[2020-11-03] MEDS ORDERED: HEPARIN 5000 UNIT/ML 1 ML VIAL ONE (17:02)
[2020-11-03] MEDS ORDERED: ASPIRIN 81 MG CHEWABLE TABLET ONE (17:02)
[2020-11-03] MEDS ORDERED: CLOPIDOGREL 75 MG TABLET ONE (17:02)
[2020-11-03] MEDS ORDERED: HEPARIN/D5W 25,000 UNIT/500 ML BAG IV ONE (17:02)
--- NOTE | 2020-11-03 18:16 | P.HP ---
Certification for Inpatient Patient admitted to: Inpatient With expected LOS: >2 Midnights Patient will require the following post-hospital care: None Practitioner: I am a practitioner with admitting privileges, knowledge of patient current condition, hospital course, and medical plan of care. Services: Services provided to patient in accordance with Admission requirements found in Title 42 Section 412.3 of the Code of Federal Regulations Patient History Date of Service: 11/03/20 Reason for admission: Neck pain, Chest pain History of Present Illness: Patient is an 80 old year-old female with a past medical history significant for depression, hypertension, DVT, essential tremors who presents with complaint of neck pain and chest pain onset today. Patient reported that she initially started having neck pain which radiated to her bilateral shoulders and substernal chest area. Patient rated pain as a 8\10 in severity and described pain as sharp in quality. Patient reports associated signs and symptoms of shortness of breath. Symptoms are aggravated by exertion and relieved by nothing. Patient reported that she called her PCP who informed her to go to the ER for medical evaluation. Allergies No Known Allergies Allergy (Unverified 01/05/17 11:31) Home medications list reviewed: No Home Medications: Biotin 1 tab PO DAILY 09/23/16 Cholecalciferol (Vitamin D3) [Vitamin D3] 1 cap PO DAILY 09/23/16 Cyanocobalamin [Vitamin B-12*] 1,000 mcg PO DAILY 09/23/16 Gabapentin 600 mg PO BEDTIME 09/23/16 Primidone [Mysoline *] 150 mg PO BID 09/23/16 Simvastatin 20 mg PO BEDTIME 09/23/16 Aspirin [Aspirin EC 81 MG] 81 mg PO DAILY 01/05/17 Duloxetine HCl 30 mg PO BEDTIME 11/16/18 Magnesium Oxide [Magnesium] 500 mg PO DAILY 11/16/18 Multivitamin [Daily Multiple Vitamin] 1 tab PO DAILY 11/16/18 Topiramate 50 mg PO BID 11/16/18 cloNIDine HCL [Catapres] 0.3 mg PO BEDTIME 11/16/18 Codeine/APAP [Tylenol W/Codeine #3 tab] 1 tab PO Q4HP PRN #30 tab 11/21/18 Sulfamethoxazole/Trimethoprim [Bactrim Ds Tablet] 1 each PO BID #10 tablet 11/21/18 - Past Medical/Surgical History Diabetic: No -: Hypertension -: DVT -: Hysterectomy -: Bariatric Surgery -: Back surgery -: Urethral surgery - Social History Smoking Status: Never smoker Alcohol use: Yes CD- Drugs: No Caffeine use: Yes Place of Residence: Home (Hyperlipidemia,) Review of Systems General: Unremarkable Eyes: Unremarkable ENT: Other (Neck pain ) Respiratory: Shortness of Breath, SOB with Excertion Cardiovascular: Chest Pain Gastrointestinal: Unremarkable Genitourinary: Unremarkable Integumentary: Unremarkable Neurological: Unremarkable Lymphatics: Unremarkable Physical Examination - Physical Exam General: Alert, In no apparent distress, Oriented x3 HEENT: Atraumatic, PERRLA, Mucous membr. moist/pink, EOMI, Sclerae nonicteric Neck: Supple, 2+ carotid pulse no bruit, No LAD, Without JVD or thyroid abnormality Respiratory: Clear to auscultation bilaterally, Normal air movement Cardiovascular: No edema, Normal pulses Capillary refill: <2 Seconds Gastrointestinal: Normal bowel sounds, No tenderness Musculoskeletal: No clubbing, No tenderness Integumentary: No rashes Neurological: Normal gait, Normal speech, Normal tone, Normal affect Lymphatics: No axilla or inguinal lymphadenopathy External genitalia: Deferred Rectal: Deferred - Studies Laboratory Data (last 24 hrs) 11/03/20 14:33: Lipase 127 11/03/20 14:33: PT 15.0 H, INR 1.30 11/03/20 14:33: WBC 7.50, Hgb 14.3, Hct 43.6, Plt Count 185 11/03/20 14:33: Sodium 143, Potassium 4.0, BUN 14, Creatinine 0.83, Glucose 116 H, Magnesium 2.2, Total Bilirubin 0.3, AST 30, ALT 23, Alkaline Phosphatase 108 Assessment and Plan - Plan --Chest pain of unclear etiology. CT imaging negative for dissection. Cardiology consulted. Will trend troponins--currently elevated. Echocardiogram pending. 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 Continue heparin drip. Further management per credit manager. --Neck pain. Will manage pain with current pain medication regimen. --Hypertension. Poorly controlled. Continue home medications and labetalol p.r.n. --Essential tremors. Continue home medication. --Hyperlipidemia. Continue statin. --History of DVT. Continue heparin drip. --Depression. Continue home medication --DVT prophylaxis with heparin drip. Discharge Plan: Home Plan to discharge in: Greater than 2 days - Advance Directives Does patient have a Living Will: No Does patient have a Durable POA for Healthcare: Yes - Code Status/Comfort Care Code Status Assessed: Yes Code Status: Full Code Critical Care: No
[2020-11-03 19:38] LABS: Urine Blood 2+ (Negative); Urine Glucose Negative (Negative); Urine Protein Negative (Negative); Urine pH 5.5 (5.0-7.0)
[2020-11-03] MEDS ORDERED: LABETALOL 20 MG/4ML SYRINGE IV PRN (20:52)
[2020-11-03] MEDS ORDERED: ACETAMINOPHEN 500 MG TAB PO PRN (20:52)
[2020-11-03] MEDS ORDERED: ONDANSETRON 4 MG/2 ML VIAL IV PRN (20:52)
[2020-11-03] MEDS ORDERED: FUROSEMIDE 40 MG/4 ML VIAL IV ONE (20:52)
[2020-11-03] MEDS ORDERED: HEPARIN/D5W 25,000 UNIT/500 ML BAG IV SCH (20:52)
[2020-11-03] MEDS ORDERED: ATORVASTATIN 40 MG TAB PO SCH (21:00)
[2020-11-03 22:09] LABS: CKMB Creatine Kinase MB 8.9 ng/mL (0.3-3.6)
[2020-11-03 22:11] LABS: Troponin I 2.59 ng/mL (0.0-0.045)
[2020-11-03] MEDS: METOPROLOL TAR 25 MG TAB PO SCH (22:32)
[2020-11-03 23:07] VITALS: BMI 24.8
[2020-11-03] MEDS ORDERED: MORPHINE 2 MG/ML SYR IV PRN (23:17)
[2020-11-04 00:09] LABS: Urine Appearance CLEAR (Clear); Urine Bilirubin NEGATIVE (Negative); Urine Blood TRACE (Negative); Urine Color YELLOW (Yellow); Urine Glucose NEGATIVE (Negative); Urine Microscopic Reflex ORDER UMIC; Urine Protein NEGATIVE (Negative); Urine Specific Gravity >=1.030 (1.005-1.030); Urine Urobilinogen 0.2 mg/dL (0.2-1.0)
[2020-11-04 00:51] LABS: Urine Bacteria <20 /HPF (<20); Urine Urothelial Cells <5 /HPF (NONE SEEN)
[2020-11-04] MEDS: NA CHLORIDE 0.9% 250 ML IV PRN ×3 (01:16→08:34)
[2020-11-04 04:23] LABS: Absolute Lymphocytes (CBC) 1.1 K/uL (0.7-4.9); Basophils % 0.2 % (0-1.3); Hematocrit 39.5 % (36.0-45.0); Lymphocytes % 13.7 % (15.3-44.8); MPV 9.5 fL (7.6-11.3); RBC Red Blood Cell Count 4.22 M/uL (3.86-4.86)
[2020-11-04] MEDS ORDERED: NA CHLORIDE 0.9% 250 ML IV PRN (04:49)
[2020-11-04 05:22] LABS: CKMB Creatine Kinase MB 8.9 ng/mL (0.3-3.6); Potassium 4.1 mmol/L (3.5-5.1); Thyroid Stimulating Hormone 2.67 uIU/mL (0.360-3.740); Troponin I 2.44 ng/mL (0.0-0.045)
[2020-11-04] MEDS: METOPROLOL TAR 25 MG TAB PO SCH (06:00)
[2020-11-04] MEDS ORDERED: NA CHLORIDE 0.9% 500 ML IV ONE (06:32)
[2020-11-04] MEDS ORDERED: NACHLORIDE 0.45% 1,000 ML IV SCH ×2 (07:00)
[2020-11-04] MEDS ORDERED: HEPA 1000U/500MLS 1,000 UNIT/500 ML BAG IV ONE (08:32)
[2020-11-04] MEDS ORDERED: TOPIRAMATE 25 MG TAB PO SCH (09:00)
[2020-11-04] MEDS ORDERED: MAGNESIUM OXIDE 400 MG TAB FT SCH (09:00)
[2020-11-04] MEDS ORDERED: ASPIRIN EC 81 MG TAB PO SCH (09:00)
[2020-11-04] MEDS ORDERED: VITAMIN D 1000 UNIT TAB PO SCH (09:00)
[2020-11-04] MEDS ORDERED: FAMOTIDINE 20 MG/2 ML VIAL IV SCH (09:00)
[2020-11-04] MEDS ORDERED: CYANOCOBALAMIN 1,000 MCG TAB PO SCH (09:00)
[2020-11-04] MEDS ORDERED: PRIMIDONE 50 MG TAB PO SCH (09:00)
[2020-11-04] MEDS ORDERED: MULTIVITAMIN TAB PO SCH (09:00)
--- NOTE | 2020-11-04 10:08 | P.PN ---
Subjective Date of Service: 11/04/20 Chief Complaint: Neck pain, Chest pain Subjective: Other (Blood pressure was low this morning. Daughter at bedside. Daughter reports patient has had poor oral oral intake over the last 3 days with increased nausea and vomiting.) Physical Examination - Vital Signs Temperature: 97.3 F Blood Pressure: 85/64 Pulse: 77 Respirations: 16 Pulse Ox (%): 100 - Studies Laboratory Data (last 24 hrs) 11/03/20 14:33: Lipase 127 11/03/20 14:33: PT 15.0 H, INR 1.30 11/03/20 14:33: WBC 7.50, Hgb 14.3, Hct 43.6, Plt Count 185 11/03/20 14:33: Sodium 143, Potassium 4.0, BUN 14, Creatinine 0.83, Glucose 116 H, Magnesium 2.2, Total Bilirubin 0.3, AST 30, ALT 23, Alkaline Phosphatase 108 Assessment & Plan Discharge Plan: Home Plan to discharge in: 48 Hours Physician Review Additional Text: Physical Exam: GENERAL: Patient alert. Patient appears dry. VITAL SIGNS: patient given fluid bolus with improved blood pressure at 110 systolic. HEENT: Dry mucous membranes noted. NECK: Supple. No carotid bruits. No lymphadenopathy or thyromegaly. LUNGS: Clear to auscultation. No crackles or wheezes are heard. HEART: Regular rate and rhythm, no appreciable gallops, rubs, murmurs or extra heart sounds ABDOMEN: Mild epigastric abdominal pain. EXTREMITIES: Dry skin noted. NEUROLOGIC: Patient alert, cooperative. SKIN: Normal color, turgor and temperature. No ulcerations or rashes noted. Impression: Chest pain secondary to NSTEMI suspect CAD Nausea, vomiting, presyncope with dehydration Hypertension Essential tremors History of DVT with IVC filter in place Depression Chronic Pain Peripheral vascular disease Plan: Chest pain secondary to NSTEMI suspect CAD: Patient remains on aspirin, statin, heparin drip. Metoprolol held. Case discussed with cardiology. Cardiology plans for heart catheterization today. Echocardiogram also ordered. Await findings from heart catheterization. Patient with nausea and vomiting and presyncope today likely from dehydration and poor oral intake over the last 3 days. Fluid bolus given. Continue with IV fluids. Will provide Pepcid. We will continue monitor closely. Case discussed in detail with daughter. Nausea, vomiting, presyncope with dehydration: Fluid bolus given. Continue with IV fluids. Will provide Pepcid. Hypertension: Hold blood pressure medication at this time. Due to dehydration. Essential tremors: Restart home medications-Topamax, Primidone History of DVT with IVC filter in place: Patient currently on heparin due to NSTEMI. Depression: Restart home medication-Cymbalta Chronic pain: Continue with Neurontin Peripheral vascular disease: Continue with above plan of care. Code Status: Full Code DVT prophylaxis: Patient on heparin drip Advanced Care Planning-30 minutes: Plan of care discussed with patient and daughter who was present at bedside. Await findings from heart catheterization. Time Spent Managing Pts Care (In Minutes): 55
[2020-11-04] MEDS ORDERED: MIDAZOLAM HCL 2 MG/2 ML INJ ONE (10:33)
[2020-11-04] MEDS ORDERED: ATROPINE SULF 1 MG/10 ML SYR IV ONE (10:34)
[2020-11-04] MEDS ORDERED: FENTANYL CITR 100 MCG/2 ML ONE (10:34)
[2020-11-04] MEDS ORDERED: NA CHLORIDE 0.9% 0 ML ONE (10:34)
[2020-11-04] MEDS ORDERED: ONDANSETRON 4 MG/2 ML VIAL ONE (10:41)
[2020-11-04] MEDS ORDERED: FLUMAZENIL 0.1 MG/ML (5 mL VIAL) IV ONE (11:08)
--- NOTE | 2020-11-04 11:34 | EKG ---
Test Date: 2020-11-03 Test Time: 14:04:05 Spinning Lathe Operator: MICAELA MEASUREMENT RESULTS: Intervals: Rate: 87 NM: 228 QRSD: 104 QT: 358 QTc: 430 [place]man: P: 64 NM: 228 QRS: -39 T: 83 INTERPRETIVE STATEMENTS: Sinus rhythm with 1st degree AV block Left axis deviation Abnormal ECG Compared to ECG 11/16/2018 14:57:26 First degree AV block now present Left-axis deviation now present Myocardial infarct finding no longer present Electronically Signed On 11-04-20 11:31:14 CDT by Anibal Garcia
[2020-11-04] MEDS ORDERED: PANTOPRAZOLE 40 MG INJ IVP SCH (11:38)
[2020-11-04] MEDS ORDERED: SODIUM CHLORIDE 0.9% 10ML INJ IV PRN (11:38)
--- NOTE | 2020-11-04 11:40 | ECHO ---
HEIGHT: 5 ft 8 in WEIGHT: 163 lb 7 oz DATE OF STUDY: 11/04/[address]: Brady Denise DO 2-DIMENSIONAL: YES M.MODE: YES DOPPLER: YES COLOR FLOW: YES TDS: NO PORTABLE: NO DEFINITY: NO BUBBLE STUDY: NO DIAGNOSIS: NSTEMI, HYPERTENSION CARDIAC HISTORY: CATHERIZATION: NO SURGERY: NO PROSTHETIC VALVE: NO PACEMAKER: NO MEASUREMENTS (cm) DIASTOLIC (NORMALS) SYSTOLIC (NORMALS) IVSd 1.0 (0.6-1.2) LA Diam 2.1 (1.9-4.0) LVEF 55% LVIDd 3.4 (3.5-5.7) LVIDs 2.5 (2.0-3.5) %FS 28% LVPWd 1.0 (0.6-1.2) Ao Diam 2.7 (2.0-3.7) 2 DIMENSIONAL ASSESSMENT: RIGHT ATRIUM: NORMAL LEFT ATRIUM: NORMAL RIGHT VENTRICLE: NORMAL LEFT VENTRICLE: NORMAL TRICUSPID VALVE: NORMAL MITRAL VALVE: NORMAL PULMONIC VALVE: NORMAL AORTIC VALVE: NORMAL PERICARDIAL EFFUSION: MODERATE TO LARGE AORTIC ROOT: NORMAL LEFT VENTRICULAR WALL MOTION: NORMAL DOPPLER/COLOR FLOW: MILD TRICUSPID REGURGITATION. COMMENTS: MODERATE TO LARGE PERICARDIAL EFFUSION. NO TAMPONADE. NORMAL LEFT VENTRICULAR SIZE AND FUCNTION. TECHNOLOGIST: Berkley MCKEON
[2020-11-04] MEDS ORDERED: COLCHICINE 0.6 MG TAB PO ONE (11:57)
[2020-11-04] MEDS ORDERED: METHYLPREDNISOLONE 125 MG INJ IV ONE (11:57)
[2020-11-04] MEDS ORDERED: NOREPINEPHRINE 4 MG in D5W 250 ML IV PRN (12:04)
[2020-11-04] MEDS ORDERED: METHYLPREDNISOLONE 125 MG INJ ONE (12:19)
--- NOTE | 2020-11-04 12:20 | RAD REPORT ---
EXAM DESCRIPTION: Noemi Single View11/04/2020 12:11 pm CLINICAL HISTORY: Chest pain COMPARISON: November 03, 2020 FINDINGS: The lungs appear clear of acute infiltrate. The heart is normal size IMPRESSION: No acute abnormalities displayed
[2020-11-04 12:35] LABS: Absolute Lymphocytes (CBC) 0.9 K/uL (0.7-4.9); Hematocrit 41.8 % (36.0-45.0); Lymphocytes % 8.4 % (15.3-44.8)
[2020-11-04 14:26] VITALS: BP 105/73; TEMP 97.5; O2SAT 97
--- NOTE | 2020-11-04 15:29 | P.DS ---
Admission Date: 11/03/20 Discharge Date: 11/04/20 Primary Care Provider: Dr. Hull Disposition: TRANSFER TO [facility] Discharge Condition: CRITICAL Reason for Admission: Neck pain, Chest pain Consultations: Cardiology-Dr. Garcia Procedures: COVID: Negative Post cath CXR: COMPARISON: November 03, 2020 FINDINGS: The lungs appear clear of acute infiltrate. The heart is normal size IMPRESSION: No acute abnormalities displayed CT scan: FINDINGS: A left aortic arch is present with normal branching pattern of the great vessels.No acute aortic finding is seen such as aneurysm, penetrating ulcer or dissection. The celiac axis, SMA, BLAYNE and renal arteries are patent. IVC filter is noted. No evidence of pulmonary embolism. The lungs are clear. Small hiatal hernia is seen with postsurgical changes at the gastroesophageal junction. The liver demonstrates no focal mass or biliary dilatation.The spleen, pancreas, adrenal glands and kidneys are within normal limits for arterial phase imaging.Benign left renal cyst. Cholecystectomy clips. No bowel obstruction, free fluid or abscess.Normal appendix.No pathologic enlarged lymphadenopathy identified. Moderate lumbosacral degenerative changes. IMPRESSION: No acute aortic finding is demonstrated. Small hiatal hernia. Heart cath: Normal coronaries ECHO: MEASUREMENTS (cm) DIASTOLIC (NORMALS) SYSTOLIC (NORMALS) IVSd 1.0 (0.6-1.2) LA Diam 2.1 (1.9- 4.0) LVEF 55% LVIDd 3.4 (3.5-5.7) LVIDs 2.5 (2.0-3.5) %FS 28% LVPWd 1.0 (0.6-1.2) Ao Diam 2.7 (2.0-3.7) 2 DIMENSIONAL ASSESSMENT: RIGHT ATRIUM: NORMAL LEFT ATRIUM: NORMAL RIGHT VENTRICLE: NORMAL LEFT VENTRICLE: NORMAL TRICUSPID VALVE: NORMAL MITRAL VALVE: NORMAL PULMONIC VALVE: NORMAL AORTIC VALVE: NORMAL PERICARDIAL EFFUSION: MODERATE TO LARGE AORTIC ROOT: NORMAL LEFT VENTRICULAR WALL MOTION: NORMAL DOPPLER/COLOR FLOW: MILD TRICUSPID REGURGITATION. COMMENTS: MODERATE TO LARGE PERICARDIAL EFFUSION. NO TAMPONADE. NORMAL LEFT VENTRICULAR SIZE AND FUCNTION.HO: Medical Problem List: Chest pain secondary moderate to large pericardial effusion without tamponade with noted elevated troponin likely pericarditis S/P heart cath showing normal coronaries Hypotension secondary to above Nausea, vomiting, presyncope with dehydration Hypertension Essential tremors History of DVT with IVC filter in place Depression Chronic Pain Peripheral vascular disease Brief History of Present Illness: 80-year-old female presented to the emergency room with neck pain and chest pain. Initial CT and dissection unremarkable. Cardiac enzymes abnormal. Patient admitted for suspected NSTEMI. Hospital Course: Patient presented with chest pain and neck pain. Initial cardiac enzymes were abnormal suspicious for NSTEMI. Patient was placed on aspirin, statin medication, beta-susana therapy and heparin drip. Patient with underlying history of hypertension, essential tremors, history of DVT with IVC filter in place, depression, chronic pain and peripheral vascular disease. Patient also had reported decreased oral intake with increased nausea and vomiting over the last several days. Cardiology proceeded with heart catheterization showing normal coronaries. The patient continued to have chest pain. Patient also had nausea, vomiting and hypotension. After further evaluation echocardiogram revealed moderate to large pericardial effusion. The patient was stabilized. Etiology unknown. Repeat CBC unremarkable. Chest x-ray unremarkable. No evidence of infection or sepsis. Patient was given multiple fluid boluses with stabilization of blood pressure. Transfer to high-level facility for pericardial window was made. Patient accepted to [facility]. Patient transported by air. Patient was stable upon transport. Case discussed with attending physician Dr. Marin will receive the patient. Case discussed in detail with cardiology who agreed with plan of care. Case also discuss with family and patient. Vital Signs/Physical Exam: Temp Pulse Resp BP Pulse Ox 97.5 F 94 H 14 105/73 100 11/04/20 14:20 11/04/20 14:20 11/04/20 14:20 11/04/20 14:20 11/04/20 10:10 General: Alert, Cooperative, Other (Blood pressure around 90-100 systolic.) HEENT: Atraumatic Neck: Supple Respiratory: Clear to auscultation bilaterally, Normal air movement Cardiovascular: Normal pulses, Regular rate/rhythm Gastrointestinal: Normal bowel sounds, No masses, No rebound, No guarding Musculoskeletal: No erythema, No tenderness, No warmth Integumentary: No warmth, No cyanosis, Other (Chronic venous stasis noted to the lower extremities) Neurological: Normal speech, Normal strength at 5/5 x4 extr, Normal tone, Normal affect Laboratory Data at Discharge: WBC 10.70 K/uL (4.3-10.9) D 11/04/20 12:24 Hgb 13.7 g/dL (12.0-15.0) 11/04/20 12:24 Hct 41.8 % (36.0-45.0) 11/04/20 12:24 Plt Count 200 K/uL (152-406) 11/04/20 12:24 PT Cancelled 11/04/20 13:00 INR Cancelled 11/04/20 13:00 APTT Cancelled 11/04/20 13:00 Sodium 141 mmol/L (136-145) 11/04/20 04:02 Potassium 4.1 mmol/L (3.5-5.1) 11/04/20 04:02 BUN 14 mg/dL (7-18) 11/04/20 04:02 Creatinine 0.74 mg/dL (0.55-1.3) 11/04/20 04:02 Glucose 125 mg/dL (74-106) H 11/04/20 04:02 Magnesium 2.2 mg/dL (1.8-2.4) 11/03/20 14:33 Total Bilirubin 0.3 mg/dL (0.2-1.0) 11/03/20 14:33 AST 30 U/L (15-37) 11/03/20 14:33 ALT 23 U/L (12-78) 11/03/20 14:33 Alkaline Phosphatase 108 U/L (45-117) 11/03/20 14:33 Troponin I 2.44 ng/mL (0.0-0.045) H* 11/04/20 04:02 Triglycerides 69 mg/dL (<150) 11/04/20 04:02 Cholesterol 187 mg/dL (<200) 11/04/20 04:02 HDL Cholesterol 85 mg/dL (40-60) H 11/04/20 04:02 Cholesterol/HDL Ratio 2.20 11/04/20 04:02 Lipase 127 U/L (73-393) 11/03/20 14:33 Home Medications: Cholecalciferol (Vitamin D3) [Vitamin D3] 1 cap PO BID 09/23/16 Cyanocobalamin [Vitamin B-12*] 1,000 mcg PO DAILY 09/23/16 Gabapentin 300 mg PO BEDTIME 09/23/16 Primidone [Mysoline *] 150 mg PO BID 09/23/16 Simvastatin 20 mg PO BEDTIME 09/23/16 Aspirin [Aspirin EC 81 MG] 81 mg PO DAILY 01/05/17 Duloxetine HCl 30 mg PO BEDTIME 11/16/18 Magnesium Oxide [Magnesium] 500 mg PO DAILY 11/16/18 Multivitamin [Daily Multiple Vitamin] 1 tab PO DAILY 11/16/18 Topiramate 50 mg PO BID 11/16/18 cloNIDine HCL [Catapres] 0.1 mg PO BEDTIME 11/16/18 Biotin 1 cap PO DAILY 11/03/20 Physician Discharge Instructions: Patient transferred to [facility] for pericardial window due to moderate to large pericardial fusion. Etiology unknown. Activity: Bedrest Followup: Bruno Hanson MD [Primary Care Provider] - Time spent managing pt's care (in minutes): 55
--- NOTE | 2020-11-04 15:59 | OP ---
Date of Procedure: 11/04/2020 Surgeon: Anibal Garcia MD Corporate Lawyer: Mr. Demetrio Carrillo. The patient will be at bedrest for 2 hours after the procedure. Plans after that will be up to Dr. Stephan damon. I have discussed the case with him and the family. Indication: Admitted to Dr. Denise on 11/03/2020 with chest pain and abnormal troponin, scheduled fo r a heart catheterization today as an inpatient. Procedure In Detail: Brought to the laboratory director today on 11/04/2020, prepped and draped in the routine sterile fashion. She was given Versed for sedation. She was given 250 mL bolus for borderline hypot ension. Angiography in the right groin was normal. Angio-Seal was used to close the case. The katelynn ent had been on heparin drip, which was stopped an hour before the procedure. A 6-Urdu sheath was introduced in the right common femoral artery successfully using the Seldinger technique and 10 mL of Xylocaine. Isidra catheter left and right were used to cannulate the left main and right main. Sh e had normal coronaries. The patient tolerated the procedure well. There were no complications. Bl ood loss was 5 mL. Postoperative Diagnosis: Non-ST elevation myocardial infarction, normal coronaries. Plan: Plan is for medical therapy. Anesthesia: Total conscious sedation 45 minutes. NB/MODL Voice ID: [id number] Report ID: [id number]
[2020-11-04] MEDS ORDERED: GABAPENTIN 300 MG CAP PO SCH (21:00)
[2020-11-04] MEDS ORDERED: DULOXETINE 30 MG CAP PO SCH (21:00)
--- NOTE | 2020-11-09 13:23 | CON ---
Date of Consultation: 11/03/2020 Reason For Consultation: The patient admitted on 11/03/[address] Denise with unstable angina. History Of Present Illness: Ms. Bhatia is 83. Has a history of DVT, essential tremors, hypertension , dyslipidemia. Came in with chest pain radiating to the arm, nausea, diaphoresis, shortness of lucy th. Denied any PND, orthopnea, pedal edema, palpitations, or syncope. Allergies: NONE. Review of Systems: Negative. Social History: Negative. Family History: Negative. Medications: At home include Zocor, primidone, clonidine, aspirin, topiramate, and gabapentin. Physical Examination: Vital Signs: Stable. She was afebrile. HEENT: Negative. Neck: Supple without any bruit, lymphadenopathy, JVD, or thyromegaly. Chest: Clear to auscultation and percussion. Cardiac: Revealed a regular rhythm and rate. No murmurs, gallops, or rubs. Abdomen: Benign. Extremities: Revealed no clubbing, cyanosis, or edema. Diagnostic Data: Her BNP was 1039. Her troponin was 3.46. She had a creatinine of 0.74. Her EKG i s nonspecific. Chest x-ray is negative. Impression And Plan: Non-ST elevation myocardial infarction and the patient with hypertension and dy slipidemia. Symptoms are very consistent with coronary artery disease. She is presently on Lovenox, metoprolol, Lasix, Lipitor, and aspirin. We will plan a heart catheterization on 11/04/2020 to defi ne her coronary anatomy. The patient understands the risks and the benefits of the procedure and she agrees to proceed. KATHY/SULLY Voice ID: [id number] Report ID: [id number]
== END 2020-11-04 14:23 | disposition short-term general hospital (02) | DRG 281 ==
LOC: ER 13:43 → ERHOLD 17:28 → 2ND 20:05
PROVIDERS: ADMIT Family Medicine; ATTEND Family Medicine
PROC: 4A023N7 Measurement of Cardiac Sampling and Pressure, Left Heart, Percutaneous Approach (ICD-10-PCS; principal; 2020-11-04)
PROC: B2111ZZ Fluoroscopy of Multiple Coronary Arteries using Low Osmolar Contrast (ICD-10-PCS; 2020-11-04)
DX: I21.4 Non-ST elevation (NSTEMI) myocardial infarction (principal); I31.3 Pericardial effusion (noninflammatory); I31.9 Disease of pericardium, unspecified; I25.110 Atherosclerotic heart disease of native coronary artery with unstable angina pectoris; E78.5 Hyperlipidemia, unspecified; F32.9 Major depressive disorder, single episode, unspecified; I73.9 Peripheral vascular disease, unspecified; E86.0 Dehydration; I10 Essential (primary) hypertension; G89.29 Other chronic pain; G25.0 Essential tremor; Z79.82 Long term (current) use of aspirin; Z79.899 Other long term (current) drug therapy; Z86.718 Personal history of other venous thrombosis and embolism; Z90.49 Acquired absence of other specified parts of digestive tract; Z95.828 Presence of other vascular implants and grafts; Z90.710 Acquired absence of both cervix and uterus; Z88.5 Allergy status to narcotic agent; Z20.822 Contact with and (suspected) exposure to COVID-19
CPT/HCPCS: 36415; 71045; 71275; 74175; 80048; 80061; 80076; 81003; 81015; 82550; 82553; 82947; 83690; 83735; 83880; 84145; 84439; 84443; 84484; 85025; 85347; 85610; 85730; 93005; 93306; 93454; 96365; 96366; 96375; 99285; C1760; C1893; J0583; J1644; J1940; J2250; J2270; J2405; J2930; J3010; J7040; J7050; J7060; Q9967; U0003